=== PATIENT | female | born 1960 | race Caucasian/White ===

== ENCOUNTER 2021-01-22 21:53 | Emergency (ER) | payer MEDICAID, OTHER ==
[~2021-01-22] VITALS: Ht 149.9 cm; Wt 72.7 kg
[~2021-01-22 21:53] MED LIST: ALBU8HFA PO; CEPH-585 PO
--- NOTE | 2021-01-22 22:10 | NUR ---
Called for triage but pt. is outside the ED.
[2021-01-23] MEDS ORDERED: nitroGLYCERIN 0.4mg/hour patch TD ONE (01:35)
[2021-01-23] MEDS ORDERED: lisinopril 10 MG tablet PO ONE (01:35)
--- NOTE | 2021-01-23 01:46 | NUR ---
patient to ct at this time with transporter
[2021-01-23 02:37] LABS: BASOPHILS # (AUTO) 0.1 X10'3 (0-0.2); BASOPHILS % (AUTO) 0.8 % (0-1); EOSINOPHILS # (AUTO) 0.2 X10'3 (0-0.9); HEMATOCRIT 43.1 % (35.0-45.0); LYMPHOCYTES % (AUTO) 27.2 % (21-51); MEAN CORPUSCULAR HEMOGLOBIN 27.5 PG (27.0-31.0); MEAN CORPUSCULAR HGB CONC 32.6 g/dL (33.0-36.5); MEAN CORPUSCULAR VOLUME 84.4 FL (78-98); MEAN PLATELET VOLUME 9.2 FL (7.4-10.4); MONOCYTES # (AUTO) 1.5 X10'3 (0-0.9); MONOCYTES % (AUTO) 13.5 % (2-12); NEUTROPHILS # (AUTO) 6.1 X10'3 (1.8-7.7); NEUTROPHILS % (AUTO) 56.5 % (42-75); PLATELET COUNT 243 X10'3 (140-440); RED CELL DISTRIBUTION WIDTH 15.3 % (11.5-14.5); WHITE BLOOD COUNT 10.9 X10'3 (4.5-11.0)
[2021-01-23] MEDS ORDERED: morphine 4 MG/ML inj SYRINge IM ONE (03:00)
[2021-01-23 03:08] LABS: ALBUMIN 3.5 G/DL (3.4-5.0); ANION GAP 11 (8-16); BLOOD UREA NITROGEN 14 MG/DL (7-18); BUN/CREATININE RATIO 15.6 (6.6-38.0); CHLORIDE 105 MMOL/L (99-107); GLUCOSE 105 MG/DL (70-104); POTASSIUM 3.3 MMOL/L (3.5-5.1); SODIUM 143 MMOL/L (135-145); TOTAL CARBON DIOXIDE 27.2 MMOL/L (24-32); eGFR 64 ML/MIN
[2021-01-23] MEDS ORDERED: SULF1TAB49 PO (04:15)
[2021-01-23] MEDS ORDERED: LISI40TA13 PO (04:15)
[2021-01-23 04:27] VITALS: BP 162/99
== END 2021-01-23 04:35 | disposition home or self-care (01) ==
LOC: ER 21:55
DX: L03.116 Cellulitis of left lower limb (principal); I10 Essential (primary) hypertension; J44.9 Chronic obstructive pulmonary disease, unspecified; F17.200 Nicotine dependence, unspecified, uncomplicated; F15.90 Other stimulant use, unspecified, uncomplicated; Z86.73 Personal history of transient ischemic attack (TIA), and cerebral infarction without residual deficits; Z88.6 Allergy status to analgesic agent; Z79.899 Other long term (current) drug therapy
CPT/HCPCS: 36415; 70450; 80048; 84484; 85025; 93005; 96372; 99285; J2270

== ENCOUNTER 2021-01-23 18:17 | Emergency (ER) | payer MEDICAID ==
[~2021-01-23] VITALS: Ht 149.9 cm; Wt 75.0 kg
[~2021-01-23 18:17] MED LIST changes: +LISI40TA13 PO; +SULF1TAB49 PO
[2021-01-23 18:27] VITALS: BP 103/66
== END 2021-01-24 00:35 | disposition left against medical advice (07) ==
LOC: ER 18:18
DX: R42 Dizziness and giddiness (principal); R11.2 Nausea with vomiting, unspecified; Z53.21 Procedure and treatment not carried out due to patient leaving prior to being seen by health care provider
CPT/HCPCS: 93005